=== PATIENT | male | born 1965 | race Caucasian/White ===

== ENCOUNTER → 2020-11-13 09:14 | Outpatient (BNVA) | payer OTHER, SELFPAY | PROVIDERS: PCP Internal Medicine Pulmonary Disease; Visit Provider Urology | DX: N52.01 Erectile dysfunction due to arterial insufficiency (principal); N32.0 Bladder-neck obstruction; R35.1 Nocturia | CPT/HCPCS: 81002; 99212 ==

== ENCOUNTER → 2021-11-16 10:03 | Outpatient (BNVA) | payer OTHER, SELFPAY | PROVIDERS: PCP Internal Medicine Pulmonary Disease; Visit Provider Urology | DX: R35.1 Nocturia (principal); N32.0 Bladder-neck obstruction; N52.9 Male erectile dysfunction, unspecified | CPT/HCPCS: Q3014 ==

== ENCOUNTER → 2022-06-09 14:10 | Outpatient (BNVA) | payer OTHER, SELFPAY | PROVIDERS: PCP Internal Medicine Pulmonary Disease; Visit Provider Urology | DX: R35.1 Nocturia (principal); N52.01 Erectile dysfunction due to arterial insufficiency; N32.0 Bladder-neck obstruction | CPT/HCPCS: 99212 ==

== ENCOUNTER → 2022-10-12 10:27 | Outpatient (BNVA) | payer OTHER, SELFPAY | PROVIDERS: PCP Internal Medicine Pulmonary Disease; Visit Provider Urology | DX: Z13.89 Encounter for screening for other disorder (principal) ==

== ENCOUNTER 2023-10-17 14:34 | Outpatient (AMB) | payer OTHER, SELFPAY ==
--- NOTE | 2023-10-17 15:04 | A.OFFVIS_ITS ---
Intake Intake Visit Reasons: 1Y PSA(set)Confirmed Intake Note: Patient is present for PSA Follow Up Allergies doxycycline [DOXYCYCLINE] Allergy (Unknown, Verified 10/17/23 15:05) VOMITING Medication List - Last Reconciled 10/17/23 by Wilfredo Ovalle MD atorvastatin 20 mg PO DAILY carbamazepine mg PO gabapentin 400 mg PO TID loratadine 10 mg PO DAILY omeprazole 40 mg PO DAILY propranolol ER 60 mg PO DAILY rizatriptan mg PO tamsulosin 0.4 mg PO BEDTIME 90 days valacyclovir 500 mg PO DAILY HPI HPI Comments History of Present Illness Details Danie is a pleasant male. He is a patient of Dr. Noel. He is seen for the following urologic conditions - lower urinary tract symptoms - erectile dysfunction Yearly review Continues with tamsulosin Refill provided Has difficulty using computer secondary to epilepsy Prior US - bilateral hydroceles - left epididymal cyst Lower Urinary Tract Symptoms: Doing well with medications Continues with Flomax PSA repeated next year Current visit is for further evaluation of, lower urinary tract symptoms, predominate irritative symptoms - doing better with symptoms. Current treatment includes alpha charles, tamsulosin - works when takes it. Prostate Symptom Score 10/17 Moderate (9-19), Bother 3 4/ , Moderate (9-19), Bother 2 / , Mild (0-8), Bother 2. Symptoms include / incomplete emptying, urgency, weak stream, nocturia (>2), and are progressing / , incomplete emptying, weak stream, and are improving 11/30 , weak stream, nocturia (>2), and are progressing. PSA 11/30 1.7, 12/03 2.3, 11/04 2.5 Prostate volume 30-50gm. Testing at next visit will include uroflow, Prostate Symptom Score. Treatment plan continue with current medications. Erectile dysfunction: ED was stress related currently fine PSA 04/29 1.7. He presents today for for continued evaluation and management of erectile dysfunction. Symptoms have been present for/since Several years Current treatment includes Viagra/sildenafil 100 mg. Treatment side effects include none. At this time he experiences erections are full, rigid and adequate for vaginal penetration, ABRAHAM 22-25 No ED. Nocturnal erections do occur Currently they are in a stable relationship. Medications include(s) antidepressant medication. Overall he is satisfied with the current management PFSH Medical History Bladder outlet obstruction Nocturia Weak urinary stream Erectile dysfunction due to arterial insufficiency Surgical History History of lung biopsy History of nasal surgery Review of Systems Const Denies chills and Denies fever(s) Card Reports no additional complaints and Denies syncope Resp Denies cough GI Denies abdominal pain and Denies heartburn Reports as per HPI and Denies change in libido Neuro Denies syncope Psych Denies change in libido Endo Denies change in libido Physical Exam Const General: cooperative, healthy appearing, comfortable and no acute distress Orientation/consciousness: patient oriented x3 HEENT Face and sinus: Yes normal facial exam Mouth: moist mucous membranes Neck Neck: Yes normal visual inspection, Yes full ROM and Yes trachea midline Chest Chest palpation & inspection: normal inspection of the chest Resp Effort & Inspection: normal respiratory effort, able to speak in complete sentences and no respiratory distress GI Inspection: Yes normal to inspection Back/Spine/Pelvis Cervical Spine: normal cervical lordosis Thoracic/Lumbar Spine: thoracic and lumbar spine normal to inspection Skin General skin exam: no rashes or lesions noted Neuro General: patient oriented x3, gait normal, tone normal and moves all extremities Extrem General: Yes normal to inspection and Yes capillary refill normal Assessment & Plan Assessment & Plan (1) Erectile dysfunction due to arterial insufficiency: Code(s): N52.01 - Erectile dysfunction due to arterial insufficiency (2) Nocturia: Code(s): R35.1 - Nocturia Plan Twelve month follow-up PSA Orders: Orders Prostate Specific Antigen 364 Days N32.0 - Bladder-neck obstruction Medications: Refilled tamsulosin 0.4 mg PO BEDTIME 90 caps 3RF 90 days N32.0 - Bladder-neck obstruction Patient Instructions: Imaging studies, laboratory and physical exam results were discussed and reviewed in detail. No major barriers to patient understanding were identified. An opportunity to ask questions regarding the treatment plan was provided. All questions were answered. The patient expressed understanding and agreement with the above treatment plan. The patient is aware they should contact our office by phone for worsening of their current condition or the appearance of new urologic symptoms. Compliance is encouraged with any medications and followup testing that is ordered. It is a privilege to participate in the urologic care of your patient. If you have any questions or concerns regarding treatment for the above conditions, or other urologic issues, please do not hesitate to contact me. The office telephone contact is [phone]. This note is constructed using voice recognition software. While every effort has been made to ensure accuracy set up mechanic heading machines errors may have been included. Yours sincerely, Dr Wilfredo Ovalle MD, [facility] - Urology Providers of Expert, Compassionate Care for the Genitourinary System Coding Level of Care Code Est Pt Level 4 (24141) Diagnoses Erectile dysfunction due to arterial insufficiency N52.01 Nocturia R35.1
== END 2023-10-17 15:27 | disposition home or self-care (01) ==
PROVIDERS: Visit Provider Urology
DX: N52.01 Erectile dysfunction due to arterial insufficiency (principal); R35.1 Nocturia
CPT/HCPCS: 99213

== ENCOUNTER → 2023-10-17 14:34 | Outpatient (BNVA) | payer OTHER, SELFPAY | PROVIDERS: Visit Provider Urology | DX: N52.01 Erectile dysfunction due to arterial insufficiency (principal); R35.1 Nocturia | CPT/HCPCS: 99212 ==

== ENCOUNTER 2024-11-13 10:03 | Outpatient (AMB) | payer OTHER, SELFPAY ==
--- NOTE | 2024-11-13 10:04 | A.OFFVIS_ITS ---
Intake Visit Reasons: 1y/PSA/PVR Intake Note: Patient is present for 1Y/PSA/PVR Urology Medication:TAMSULSOIN Antibiotic Allergy:DOXYCYCLINE Blood Thinner:NONE TODAY'S PVR: 15ML'S Health Insurance Sales Agent Required: No Allergies doxycycline [DOXYCYCLINE] Allergy (Unknown, Verified 11/13/24 10:06) VOMITING HPI Comments Details: Danie is a pleasant male. He is a patient of Dr. Noel. He is seen for the following urologic conditions - lower urinary tract symptoms - erectile dysfunction Yearly review Continues with tamsulosin 2 times per day Working at [employer] Has difficulty using computer secondary to epilepsy Prior US - bilateral hydroceles - left epididymal cyst Lower Urinary Tract Symptoms: Doing well with medications Continues with Flomax PSA repeated next year Current visit is for further evaluation of, lower urinary tract symptoms, predominate irritative symptoms - doing better with symptoms. Current treatment includes alpha charles, tamsulosin - works when takes it. Prostate Symptom Score 10/17 Moderate (9-19), Bother 3 / , Moderate (9-19), Bother 2 / , Mild (0-8), Bother 2. Symptoms include 05/30 incomplete emptying, urgency, weak stream, nocturia (>2), and are progressing 11/29 , incomplete emptying, weak stream, and are improving 11/30 , weak stream, nocturia (>2), and are progressing. PSA 11/30 1.7, 12/03 2.3, 11/04 2.5, 11/05 2.2 Prostate volume 30-50gm. Testing at next visit will include uroflow, Prostate Symptom Score. Treatment plan continue with current medications. Erectile dysfunction: ED was stress related currently fine PSA 04/29 1.7. He presents today for for continued evaluation and management of erectile dysfunction. Symptoms have been present for/since Several years Current treatment includes Viagra/sildenafil 100 mg. Treatment side effects include none. At this time he experiences erections are full, rigid and adequate for vaginal penetration, ABRAHAM 22-25 No ED. Nocturnal erections do occur Currently they are in a stable relationship. Medications include(s) antidepressant medication. Overall he is satisfied with the current management [facility] Medical History Bladder outlet obstruction Nocturia Weak urinary stream Erectile dysfunction due to arterial insufficiency Surgical History History of lung biopsy History of nasal surgery Office Procedures Post Void Residual Post Residual Void Post Void Residual (PVR): 15 [id number] Void Residual by ultrasound Results AMB Urinalysis, Automated UA Leukoctes 0 Alisha/uL Last Edit by KIT Jung on 11/13/24 10:17 UA Nitrite Negative Last Edit by Venus Morrow [facility] on 11/13/24 10:17 UA Urobilinogen 0.2 mg/dL Last Edit by Venus Morrow [facility] on 11/13/24 10:1 7 UA Protein 15 mg/dL Last Edit by Venus Morrow [facility] on 11/13/24 10:17 UA pH 6.5 Last Edit by Venus Morrow [facility] on 11/13/24 10:17 UA Blood 0 Korey/uL Last Edit by Venus Morrow [facility] on 11/13/24 10:17 UA Specific Alvin 1.015 Last Edit by Venus Morrow [facility] on 11/13/24 10: 17 UA Ketone Negative Last Edit by Venus Morrow [facility] on 11/13/24 10:17 UA Bilirubin 0 mg/dL Last Edit by Venus Morrow [facility] on 11/13/24 10:17 UA Glucose 0 mg/dL Last Edit by Venus Morrow [facility] on 11/13/24 10:17 Results Reviewed Results Reviewed: Laboratory Last Values Urine pH (Auto) 6.5 11/13/24 10:17 Specific Alvin (Auto) 1.015 11/13/24 10:17 Urine Protein (Auto) 15 mg/dL 11/13/24 10:17 Glucose (UA)(Auto) 0 mg/dL 11/13/24 10:17 Urine Ketones (Auto) Negative 11/13/24 10:17 Urine Blood (Auto) 0 Korey/uL 11/13/24 10:17 Urine Nitrite (Auto) Negative 11/13/24 10:17 Urine Bilirubin (Auto) 0 mg/dL 11/13/24 10:17 Urine Urobilinogen (Auto) 0.2 mg/dL 11/13/24 10:17 Leukocyte Esterase (Auto) 0 Alisha/uL 11/13/24 10:17 Assessment & Plan Assessment & Plan Orders: Orders AMB Urinalysis Automated 11/13/24 Z13.9 - Encounter for screening, unspecified Coding CPT Codes Post Residual Void - PVR CPT Code: 63235-Nlaq Void Residual by ultrasound ([id number])
--- OUTSIDE RECORDS SUMMARY | 2024-11-13 11:36 | XMS_ITS | Clinical Summary ---
Author Organization [facility] Address [address] [facility] [place] [address] Phone Care Team Providers Care Chick Sexer Name Role Phone Danie Jordan MD Primary Care Provider [phone] Allergies Active Allergy Reactions Criticality Noted Date Comments Doxycycline 01/31/2017 No reaction documented. Latex 09/20/2022 Medications aspirin/acetami nophen/caffeine (EXCEDRIN MIGRAINE ORAL) Take by mouth. Active vitamin B complex (B COMPLEX ORAL) Take by mouth. A ctive clotrimazole-be tamethasone (LOTRISONE) 1-0.05 % cream Apply sparingly to external affected area 2 times daily for 7-10 days. 4 Active benoxinate HCl/fluorescein sod (FLURATE OPHT) 1 Drop once. Active gabapentin (NEURONTIN) 400 mg capsule TAKE 1 CAPSULE BY MOUTH THREE TIMES DAILY 4 Active lidocaine (LIDODERM) 5 % patch Place 1 Patch onto the skin every 24 hours. Apply for no more than 12 hours in any 24 hour period. 4 Active lidocaine (ZTlido) 1.8 % adhesive patch,medicated Apply 1 Patch topically every 24 hours. 2 Active multivit-min/fo lic acid/vit K1 (MULTI FOR HIM, NO IRON, ORAL) Take by mouth. Active OXcarbazepine 600 mg tablet extended release 24 hr Take by mouth. A ctive propranoloL (INDERAL) 60 mg tablet Take 60 mg by mouth 3 times daily. Active SUMAtriptan (IMITREX) 100 mg tablet May repeat dose once after 2 hours, if needed. 3 Active valACYclovir (VALTREX) 500 mg tablet Take 1 Tablet by mouth 3 times daily. 4 Active omeprazole (PriLOSEC) [address] capsule Take 1 capsule (40 mg total) by mouth 1 (one) time each day. Do not crush or chew. 30 capsule 11 4 Active atorvastatin (LIPITOR) 40 mg tablet Take 1 tablet (40 mg total) by mouth 1 (one) time each day. 90 tablet 5 Active loratadine (Allergy Relief, loratadine,) 10 mg tablet Take 1 tablet (10 mg total) by mouth 1 (one) time each day. 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 While patient was in office we reviewed his most recent chest CT scan which was performed at [facility] on 06/27/2024 which shows stable postoperative changes of right middle lobectomy with multiple punctate calcified nodules consistent with granulomatous disease which have not changed in size or shape. There is no interval development of suspicious pulmonary nodules or focal infiltrate. His next chest CT surveillance scan will be due in 1 years time which will be June 2025 and have a visit at the thoracic surgery department thereafter to discuss results. Benign neoplasm of esophagus 06/05/2024 PTSD (post-traumatic stress disorder) 06/05/2024 Fatty liver 11/13/2023 High grade dysplasia in colonic adenoma 05/22/20 Reflux esophagitis 05/22/2019 Esophageal thickening 12/19/2017 Allergic rhinitis 01/31/2017 Anxiety disorder 01/31/2017 Epilepsy 01/31/2017 Erectile dysfunction 01/31/2017 Genital herpes 01/31/2017 Hyperlipidemia 01/31/2017 Immunizations Name Administration Dates Next Due Influenza trivalent, 0.5mL (Fluad) 65yo and olde r 05/19/2021 Influenza, Unspecified 05/26/2023 Moderna SARS-CoV-2 COVID-19, mRNA, LNP-S, preservative free 05/26/2023 DEMANDIT SARS-CoV-2 COVID-19, mRNA, LNP-S, preservative free 05/19/2021 Pneumococcal conjugate 13 va lent (Prevnar 13, PCV13) 2mo and older 07/25/2016 Tdap Tetanus diptheria acell ular pertussis (Boostrix; Adacel) 7yo and older 06/10/2022 Zoster recombinant (Shingrix) 19yo and older ,06/15/2020 Surgical History Surgery Date Site/Laterality Comments COLONOSCOPY 12/21/2017 PROCEDURE: HISTORICAL COLONOSCOPY; COMMENT: pathology-tubular adenoma ESOPHAGOGASTRODUODENOSCOPY 12/21/2017 PROCEDURE: MT ESOPHAGOGASTRODUODENOSCOPY TRANSORAL DIAGNOSTIC; COMMENT: gastritis, hiatal hernia, grade C esophagitis BACK SURGERY PROCEDURE: HISTORICAL BACK SURGERY; COMMENT: I & D of back abcess OTHER SURGICAL HISTORY PROCEDURE: MT OBLTRJ AORTOPULMONARY SEPTAL DEFECT W/O BYPASS OTHER SURGICAL HISTORY 2014 Right PROCEDURE: MT REMOVAL OF LUNG PNEUMONECTOMY; COMMENT: partial Medical History Medical History Date Comments PTSD (post-traumatic stress disorder) DX:PTSD (post-traumatic stress disorder) Epilepsy DX:Epilepsy (HCC ) Benign neoplasm of esophagus DX: 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 bronchial cancer 01/31/2017 DX:History of primary bronchial cancer Allergic rhinitis 01/31/2017 DX:Allergic rh initis Anxiety disorder 01/31/2017 DX:Anxiety diso rder Erectile dysfunction 01/31/2017 DX:Erectile dysfunction Esophageal thickening 12/19/2017 DX:Esophag eal thickening Genital herpes 01/31/2017 DX:Genital herpe s High grade dysplasia in colonic adenoma 05/22/20 DX:High grade dysplasia in colonic adenoma Hyperlipidemia 01/31/2017 DX:Hyperlipidemi a Reflux esophagitis 05/22/2019 DX:Reflux eso phagitis Tubular adenoma of colon DX:Tubu lar adenoma of colon History of colitis DX:History of colitis Migraines DX:Migraines Fatty liver 11/13/2023 DX:Fatty liver Social History Tobacco Use Types Packs/Day Years Used Date Smoking Tobacco: Former Cigarettes Q uit: 08/14/2004 Smokeless Tobacco: Never Tobacco Cessation:Counseling Given: Not Answered Alcohol Use Standard Drinks/Week Comments Yes 0 (1 standard drink = 0.6 oz pur e alcohol) Sex and Gender Information Value Date Recorded Sex Assigned at Not on file Legal Sex Male 3:25 PM EST Gender Identity Not on file Sexual Orientation Not on file Obstetrics History Last Filed Vital Signs Vital Sign Reading Time Taken Comments Blood Pressure 112/75 07/05/2024 3:35 PM EST Pulse 64 07/05/2024 3:35 PM EST Temperature 36.6 ??C (97.8 ??F) 07/05/2024 3:35 PM ES T Respiratory Rate 16 07/05/2024 3:35 PM EST Oxygen Saturation 98% 07/05/2024 3:35 PM EST Inhaled Oxygen Concentration - - Weight 70 kg (154 lb 6.4 oz) 07/05/2024 3:35 PM EST Height 167.6 cm (5' 6 ) 07/05/2024 3:35 PM EST Body Mass Index 24.92 07/05/2024 3:35 PM EST Plan of Treatment Upcoming Encounters Date Type Department Care Team (Late st Contact Info) Description 11/27/2024 2:45 PM EDT Office Visit Internal Medicine - [address] [phone] Danie Jordan MD [address] [place] [id number] Health Maintenance Due Date Last Done Comments Hepatitis A Vaccines (1 of 2 - Risk 2-dose series) 12/06/1983 Hepatitis B Vaccines (1 of 3 - 19+ 3-dose series) 12/06/1983 Pneumococcal Vaccine: 50+ Years (2 of 2 - PPSV23) 09/19/2016 07/25/2016 Pneumococcal Vaccine: Pediatrics (0 to 5 Years) and At-Risk Patients (6 to 64 Years) (2 of 2 - PPSV23) 09/19/2016 07/25/2016 HIV Screening 07/23/2022 Social Influencers of Health Screening 07/23/2022 Depression Screening 07/20/2024 07/20/2023 Colorectal Cancer Screening: Colonoscopy 09/08/2025 09/08/2020 Cholesterol Screening (Lipid Panel) 04/09/2029 04/09/2024, 04/09/2024 DTaP,Tdap,and Td Vaccines (2 - Td or Tdap) 06/10/2032 06/10/2022 RSV Immunization Adult Patients (1 - 1-dose 75+ series) 12/06/2039 Zoster Vaccines Completed 05/14/2022, 08/15, 07/05/2021, Additional history exists Hepatitis C Screening Completed 07/20/2023 COVID-19 Vaccine Completed 06/18/2024, , 05/14/2022, Additional history exists Influenza Vaccine Completed 06/18/2024, , 04/14/2023, Additional history exists HIB Vaccines Aged Out No longer eligi ble based on patient's age to complete this topic HPV Vaccines Aged Out No longer eligi ble based on patient's age to complete this topic IPV Vaccines Aged Out No longer eligi ble based on patient's age to complete this topic MMR Vaccines Aged Out No longer eligi ble based on patient's age to complete this topic Meningococcal ACWY Vaccine Aged Out N o longer eligible based on patient's age to complete this topic Meningococcal B Vacine Aged Out No lo nger eligible based on patient's age to complete this topic RSV Immunization Patients Under 20 months Aged Out No longer eligible based on patient's age to complete this topic Varicella Vaccines Aged Out No longer eligible based on patient's age to complete this topic Procedures Procedure Name Priority Date/Time Associated Diagnosis Comments PROSTATE SPECIFIC ANTIGEN SCREEN Routine 11/08/2024 1:35 PM EDT Bladder neck obstruction LIPID PANEL Routine 04/09/2024 HEPATITIS C SCREENING Routine 07/20/2023 DEPRESSION SCREENING Routine 07/20/2023 COLONOSCOPY Routine 09/08/2020 from Last 3 Months or Most Recently Relevant to Health Maintenance Results * Prostate specific antigen screen (11/08/2024 1:35 PM EDT) PSA 2.19 0.00 - 4.00 ng/mL LAB CHEMISTRY METHOD 11/08/2024 4:41 PM EDT [facility] Blood Venous blood specimen / Unknown Venipuncture / Unknown 11/08/2024 1:35 PM EDT 11/08/2024 1:35 PM EDT Narrative [facility] - 11/08/2024 4:41 PM EDT The Siemens Advia Centaur Chemiluminescent Immunoassay is used. Results obtained with different assay methods or kits cannot be used interchangeably. Results cannot be interpreted as absolute evidence of the presence or absence of malignant disease. Result [facility] Wilfredo Ovalle MD LAB BLOOD ORDERABLES Final Re sult [facility] ([facility] [address] [place] [address], * (ABNORMAL) Lipid panel (04/09/2024) [facility] LDL/HDL Ratio 4 0 - 4 Triglycerides 87 0 - 150 mg/dL Cholesterol 181 0 - 200 mg/dL HDL 52 >=40 mg/dL LDL Cholesterol 112(A) 0 - 100 mg/dL Blood Venous blood specimen / Unknown Result [facility] Meño Ward MD LAB BLOOD ORDERABLES Haleigh l Result * Depression Screening (07/20/2023) [facility] Depression Screening Abstracted Result [facility] MAINTENANCE Final Result * Hepatitis C Screening (07/20/2023) [facility] Hepatitis C Screening Abstracted Result [facility] HEALTH MAINTENANCE Final Result * Colonoscopy (09/08/2020) [facility] Colonoscopy No interpretation , Abstracted Comment:The polyp(s) that we re removed during your colonoscopy were precancerous, but benign. Fortunately, we removed them and therefore, they will not cause any more problems in the future. ?? Based on the number, the size, and the features of the polyp(s) removed, I recommend a follow-up colonoscopy in 5 years. Anatomical Region Laterality Modality Other us Historical Provider HEALTH MAINTENANCE Final Result from Last 3 Months or Most Recently Relevant to Health [place] [address] [facility] Care Teams Chick Sexer Relationship Specialty Start Date End Date Danie Jordan MD [address] [place] [id number] PCP - General Internal Medicine 05/03/21
== END 2024-11-13 10:42 | disposition home or self-care (01) ==
LOC: HO.HUSH 10:03
PROVIDERS: PCP Internal Medicine Pulmonary Disease; Visit Provider Urology
DX: Z13.9 Encounter for screening, unspecified (principal)

== ENCOUNTER → 2024-11-13 10:03 | Outpatient (BNVA) | payer OTHER, SELFPAY | PROVIDERS: PCP Internal Medicine Pulmonary Disease; Visit Provider Urology | DX: R35.1 Nocturia (principal); N32.0 Bladder-neck obstruction | CPT/HCPCS: 51798; 81003; 99212 ==

== ENCOUNTER 2025-05-07 10:43 | Outpatient (AMB) | payer OTHER, SELFPAY ==
--- NOTE | 2025-05-07 10:45 | MHC.OFFVIS ---
Intake Visit Reasons: 6 month Epilepsy Allergies doxycycline (DOXYCYCLINE) Allergy (Unknown, Verified 05/07/25 10:50) VOMITING Medication List - Last Reconciled 05/07/25 by Vannesa Matamoros CNP atorvastatin 20 mg PO DAILY carbamazepine (Tegretol) 600 mg (3 x 200 mg) PO BID 90 days gabapentin 400 mg PO BID loratadine 10 mg PO DAILY omeprazole 40 mg PO DAILY propranolol ER 60 mg PO DAILY 90 days sumatriptan succinate 100 mg orally one a day as needed PRN; do not exceed 2 doses per 24 hrs 30 days tamsulosin 0.4 mg PO BID 90 days valacyclovir 500 mg PO DAILY HPI Comments Details: 59-year-old RH man with migraine, and epilepsy since he was a few months old. Seizures now were different now. In young age he used to have grand mal seizures more than smaller ones. His seizures included blacking out, falling, shaking, and foaming. He was doing okay. He had a few migraines last month which he thinks may have been triggered by heat. Sumatriptan as needed helped. He was working at [employer] in [employer] in [place] and had to wear all black for his uniform. No seizures. Sleep was not so good. He was under some stress related to work. [facility] Medical History Bladder outlet obstruction Nocturia Weak urinary stream Erectile dysfunction due to arterial insufficiency Surgical History History of lung biopsy History of nasal surgery Review of Systems Const Denies chills, Denies daytime sleepiness, Reports difficulty sleeping, Denies fatigue, Denies fever(s), Denies frequent falls, Reports headache(s), Denies increased appetite, Denies poor appetite, Denies snoring, Denies weakness, Denies weight gain and Denies weight loss Eyes Denies loss of vision ENT Denies vertigo, Denies dizziness and Reports headache(s) Card Denies chest pain at rest, Denies chest pain with activity, Denies syncope, Denies leg edema and Denies palpitations Resp Denies snoring GI Denies constipation, Denies heartburn, Denies diarrhea and Denies nausea Denies urinary frequency, Denies urinary incontinence and Denies urinary urgency Musc Denies abnormal gait, Denies numbness and Denies tingling Skin/Breast Denies dry skin and Denies rash Neuro Denies abnormal gait, Denies vertigo, Denies dizziness, Denies syncope, Denies frequent falls, Reports headache(s), Denies lack of coordination, Denies loss of vision, Denies memory loss, Denies numbness, Denies restless legs, Denies seizure-like activity, Denies tingling, Denies paresthesias, Denies tremor(s) and Denies weakness Psych Denies anxiety, Denies depression, Denies auditory hallucinations, Denies memory loss, Denies visual hallucinations and Denies suicidal ideation Endo Denies fatigue and Denies palpitations Physical Exam Const Other: General Appearance:? normal, in no acute distress. Skin:? no rashes, no significant birthmarks. Heart:? S1, S2 normal, no murmurs. Lungs:? clear anteriorly and posteriorly. Extremities:? no edema. Psych:? alert, oriented, cognitive function intact, cooperative with exam. Neuro Other: Mental Status:?Normal attention, orientation, memory and affect.? Cranial Nerves:?Pupils are equal, round and reactive to light. External occular muscles are intact. Visual naidu are full. Face is symmetrical. Facial sensations are normal. Tongue is midline. Palate elevates symmetrically. Shoulder shrugging is normal. Hearing to bedside conversation is normal. Sensory Exam:?....? Coordination:?No ataxia,?no titubation.? Gait Exam: Within normal limits. Extrapyramidal System:?No tremor, rigidity with normal facial expressions.? Pronator Drift:?Not present.? Involuntary Movements:?No tremors seen.? Speech:?Normal.? Results Reviewed Results Reviewed: Routine EEG at [facility] in 2022: WNL MRI brain [facility]WO at [facility] in 2017: mild bifrontal atrophy Assessment & Plan Assessment & Plan (1) Epilepsy: Code(s): G40.909 - Epilepsy, unspecified, not intractable, without status epilepticus Category: Medical Qualifiers: Epilepsy type: unspecified Intractability: not intractable Status epilepticus: without status epilepticus Qualified Code(s): G40.909 - Epilepsy, unspecified, not intractable, without status epilepticus Plan: Continue carbamazepine 200mg 3 tablets twice a day. Continue gabapentin 400mg 1 capsule twice a day. (2) Migraine: Code(s): G43.909 - Migraine, unspecified, not intractable, without status migrainosus Category: Medical Qualifiers: Intractability: not intractable Migraine type: unspecified Status migrainosus presence: without status migrainosus Qualified Code(s): G43.909 - Migraine, unspecified, not intractable, without status migrainosus Plan: Continue propranolol ER 60mg 1 capsule daily. Continue sumatriptan 100mg 1 tablet as needed for migraine. (3) Insomnia: Code(s): G47.00 - Insomnia, unspecified Category: Medical Qualifiers: Insomnia type: unspecified Qualified Code(s): G47.00 - Insomnia, unspecified Plan . Medications: Changed From gabapentin 400 mg PO BID To gabapentin 400 mg PO BID 180 caps 1RF 90 days Coding Level of Care Code Est Pt Level 4 (33874) Diagnoses Nonintractable epilepsy without status epilepticus, unspecified epilepsy type G40.909 Epilepsy type: unspecified Intractability: not intractable Status epilepticus: without status epilepticus Migraine without status migrainosus, not intractable, unspecified migraine type G43.909 Intractability: not intractable Migraine type: unspecified Status migrainosus presence: without status migrainosus Insomnia, unspecified type G47.00 Insomnia type: unspecified
== END 2025-05-07 11:11 | disposition home or self-care (01) ==
LOC: HO.HSM 10:44
PROVIDERS: PCP Internal Medicine; Referring Provider Internal Medicine; Visit Provider Registered Nurse
DX: G40.909 Epilepsy, unspecified, not intractable, without status epilepticus (principal); G43.909 Migraine, unspecified, not intractable, without status migrainosus; G47.00 Insomnia, unspecified
CPT/HCPCS: 99214

== ENCOUNTER → 2025-05-07 10:43 | Outpatient (BNVA) | payer OTHER, SELFPAY | PROVIDERS: PCP Internal Medicine; Referring Provider Internal Medicine; Visit Provider Registered Nurse | DX: G40.909 Epilepsy, unspecified, not intractable, without status epilepticus (principal); G43.909 Migraine, unspecified, not intractable, without status migrainosus; G47.00 Insomnia, unspecified; Z79.899 Other long term (current) drug therapy | CPT/HCPCS: 99212 ==